=== PATIENT | male | born 1950 | race Caucasian/White ===

== ENCOUNTER 2020-01-23 15:33 | Outpatient (CLI) | payer BC, SELFPAY ==
--- NOTE | ~2020-01-23 | XR_ITS ---
EXAMINATION: XR chest 2V 01/23/2020 15:48 INDICATION: Shortness of breath PROCEDURE: 2 view chest COMPARISON: Comparison to multiple prior studies sequentially, with oldest reviewed study dated 10/2014. FINDINGS: The lungs are clear. Status post partial left lung resection. The cardiomediastinal silhoue tte is within normal limits. There are no pleural effusions. There is no pneumothorax suspected. IMPRESSION: 1: NO ACUTE CARDIOPULMONARY DISEASE. Reviewed, dictated and finalized at location A.
== END 2020-01-23 15:34 | disposition home or self-care (01) ==
LOC: ANHIMG 15:38
PROVIDERS: PCP Family Medicine; Visit Provider Nurse Practitioner Family
DX: R06.02 Shortness of breath (principal)
CPT/HCPCS: 71046

== ENCOUNTER 2020-01-25 06:31 | Outpatient (CLI) | payer BC, SELFPAY ==
[2020-01-25 07:17] LABS: Hemoglobin 14.6 g/dL (14.0-18.0); Mean Corpuscular HGB Conc 33.2 g/dl (32-36); Mean Corpuscular Volume 90.3 fl (80-100); Platelet Count Result 195 k/mm3 (150-375); Red Blood Count 4.87 M/mm3 (4.6-6.20); Red Cell Distribution Width 12.7 % (11.5-14.5); White Blood Count 6.9 K/mm3 (4.5-10.0)
[2020-01-25 07:31] LABS: Blood Urea Nitrogen 16 mg/dL (9-20); Calcium 8.9 mg/dL (8.4-10.2); Carbon Dioxide 31 mmol/L (22-30); Chloride 97 mmol/L (98-107); Cholesterol 132 mg/dL (0-200); Estimated Glomerular Filt Rate > 60; Glucose 97 mg/dL (75-110); HDL Direct 48 mg/dL; Sodium 132 mmol/L (137-145); Triglycerides 48 mg/dL (<150)
[2020-01-25 07:40] LABS: LDL Cholesterol Direct 66 mg/dL
[2020-01-25 07:58] LABS: Vitamin D 25 Hydroxy 18.9 ng/mL
== END 2020-01-25 06:32 | disposition home or self-care (01) ==
PROVIDERS: PCP Family Medicine; Visit Provider Nurse Practitioner Family
DX: R06.02 Shortness of breath (principal); F41.9 Anxiety disorder, unspecified; E78.5 Hyperlipidemia, unspecified; R53.83 Other fatigue; E55.9 Vitamin D deficiency, unspecified
CPT/HCPCS: 36415; 80048; 80061; 82306; 84443; 85027

== ENCOUNTER 2020-04-10 06:57 | Outpatient (CLI) | payer BC, SELFPAY ==
[2020-04-10 07:35] LABS: Sodium 139 mmol/L (137-145)
[2020-04-10 09:43] LABS: Vitamin D 25 Hydroxy 51.7 ng/mL
== END 2020-04-10 06:58 | disposition home or self-care (01) ==
PROVIDERS: PCP Family Medicine; Visit Provider Nurse Practitioner Family
DX: E55.9 Vitamin D deficiency, unspecified (principal); E87.1 Hypo-osmolality and hyponatremia
CPT/HCPCS: 36415; 82306; 84295

== ENCOUNTER 2020-06-20 14:21 | Outpatient (CLI) | payer BC, SELFPAY ==
[2020-06-20 16:19] LABS: Vitamin D 25 Hydroxy 50.4 ng/mL
== END 2020-06-20 14:22 | disposition home or self-care (01) ==
PROVIDERS: PCP Family Medicine; Visit Provider Nurse Practitioner Family
DX: E55.9 Vitamin D deficiency, unspecified (principal)
CPT/HCPCS: 36415; 82306

== ENCOUNTER 2020-07-13 08:40 | Outpatient (NON) | payer BC, SELFPAY ==
[2020-07-13 17:45] LABS: SARS-CoV-2 RNA PCR Positive
== END 2020-07-13 08:41 ==
PROVIDERS: PCP Family Medicine; Visit Provider Nurse Practitioner Family
DX: U07.1 COVID-19 (principal)
CPT/HCPCS: 87635; C9803; U0003

== ENCOUNTER 2020-07-30 10:03 | Outpatient (NON) | payer BC, SELFPAY ==
[2020-07-31 01:06] LABS: SARS-CoV-2 RNA PCR Positive
== END 2020-07-30 10:04 ==
LOC: ANHCOVIDDT 10:04
PROVIDERS: PCP Family Medicine; Visit Provider Nurse Practitioner Family
DX: U07.1 COVID-19 (principal)
CPT/HCPCS: 87635; C9803; U0003

== ENCOUNTER 2021-01-04 11:31 | Outpatient (CLI) | payer BC, SELFPAY ==
--- NOTE | ~2021-01-04 | XR_ITS ---
EXAMINATION: XR chest 2V DATE: 01/04/2021 11:54 INDICATION: Cough. TECHNIQUE: Frontal and lateral views of the chest were obtained. COMPARISON: Chest 2 views 01/23/2020, chest CT 08/30/2018 FINDINGS: There is volume loss of left hemithorax from left lower lobectomy. There is mild scarring a t the lung apices. No pleural effusion or pneumothorax. The heart size is normal. IMPRESSION: 1. Stable mild scarring at the lung apices. 2. Left lower lobectomy. Reviewed, dictated and finalized at location A.
== END 2021-01-04 11:32 | disposition home or self-care (01) ==
PROVIDERS: PCP Family Medicine; Visit Provider Nurse Practitioner Family
DX: R05 Cough (principal); R91.8 Other nonspecific abnormal finding of lung field
CPT/HCPCS: 71046

== ENCOUNTER 2021-01-31 08:02 | Outpatient (CLI) | payer MEDICARE, OTHER, SELFPAY ==
[2021-01-31 08:55] LABS: Basophils Percent Auto 0.5 % (0.2-1.2); Eosinophils Absolute Auto 0.4 K/mm3 (0-0.3); Eosinophils Percent Auto 5.4 % (0-4.4); Hematocrit 43.6 % (42.0-52.0); Hemoglobin 14.4 g/dL (14.0-18.0); Immature Granulocyte Absolute 0.04 K/mm3 (0.00-0.031); Immature Granulocyte Percent A 0.5 % (0-0.5); Lymphocytes Absolute Auto 3.19 K/mm3 (0.9-3.2); Lymphocytes Percent Auto 42.8 % (18.3-44.2); Mean Corpuscular Hemoglobin 29.9 pg (26-34); Mean Corpuscular Volume 90.6 fl (80-100); Mean Platelet Volume 10.2 fl (7.4-10.4); Monocytes Absolute Auto 0.9 K/mm3 (0.1-0.6); Monocytes Percent Auto 12.3 % (2.6-8.5); Neutrophils Absolute Auto 2.9 K/mm3 (1.3-6.7); Neutrophils Percent Auto 38.5 % (45.5-73.1); Platelet Count Result 218 k/mm3 (150-375); Red Blood Count 4.81 M/mm3 (4.6-6.20); Red Cell Distribution Width 13.2 % (11.5-14.5); White Blood Count 7.5 K/mm3 (4.5-10.0)
[2021-01-31 09:08] LABS: Alanine Aminotransferase 40 U/L (4-50); Alkaline Phosphatase 77 U/L (38-126); Anion Gap 4 mmol/L (8-16); Aspartate Amino Transferase 35 U/L (17-59); Bilirubin,Total 0.3 mg/dL (0.2-1.3); Blood Urea Nitrogen 22 mg/dL (9-20); Calcium 9.4 mg/dL (8.4-10.2); Carbon Dioxide 34 mmol/L (22-30); Chloride 102 mmol/L (98-107); Cholesterol 144 mg/dL (0-200); Estimated Glomerular Filt Rate > 60; Glucose 99 mg/dL (75-110); HDL Direct 45 mg/dL; Potassium 4.9 mmol/L (3.4-5.0); Sodium 140 mmol/L (137-145); Triglycerides 64 mg/dL (<150)
[2021-01-31 09:19] LABS: LDL Cholesterol Direct 74 mg/dL
[2021-01-31 09:50] LABS: Vitamin D 25 Hydroxy 55.6 ng/mL
== END 2021-01-31 08:03 | disposition home or self-care (01) ==
PROVIDERS: PCP Family Medicine; Visit Provider Nurse Practitioner Family
DX: E78.2 Mixed hyperlipidemia (principal); E55.9 Vitamin D deficiency, unspecified; I10 Essential (primary) hypertension
CPT/HCPCS: 36415; 80053; 80061; 82306; 84443; 85025

== ENCOUNTER 2021-07-11 01:21 | Day surgery (SDC) | payer MEDICARE, OTHER, SELFPAY ==
[2021-06-25 14:17] VITALS: BMI 23.5
[2021-07-11 08:34] VITALS: BP 144/79; PULSE 90; RESP 18; TEMP 36.2; O2SAT 99; BMI 23.0
[2021-07-11] MEDS: LACTATED RINGERS 1,000 ML 150 ML IV CONT (08:37)
--- NOTE | 2021-07-11 08:45 | WPDANESEPPF ---
Anes - Initial Pre Proc Eval Procedure: Operation Date: 07/11/21 09:30 Proposed Procedures p Screening Colonoscopy - Brandyn Winslow MD Date/Time: 07/11/21 08:45 Surgeon: Brandyn Winslow MD Pre Op Diagnosis: neoplasm screening Patient Data Age: 71 Gender: M Height: 1.68 m Weight: 64.8 kg Last Vital Signs Temp 36.2 C L 07/11/21 08:34 Pulse 90 07/11/21 08:34 Resp 18 07/11/21 08:34 BP 144/79 H 07/11/21 08:34 Pulse Ox 99 07/11/21 08:34 Allergies Allergy/AdvReac Type Severity Reaction Status Date / Time benzonatate Allergy Severe Unknown Verified 07/11/21 08:33 diphenhydramine Allergy Intermediate Unknown Verified 07/11/21 08:33 clarithromycin Allergy Mild Unknown Verified 07/11/21 08:33 levofloxacin Allergy Unknown Unknown Verified 07/11/21 08:33 Penicillins Allergy Unknown Unknown Verified 07/11/21 08:33 pseudoephedrine Allergy Unknown Unknown Verified 07/11/21 08:33 Home Medications Medication Instructions Recorded Confirmed Type tamsulosin 0.4 mg capsule 0.4 mg PO DAILY 10/25/20 07/11/21 History alprazolam 0.5 mg tablet 0.5 mg PO TID PRN #60 tablet 05/22/21 07/11/21 Rx atorvastatin 80 mg tablet 80 mg PO DAILY #90 tablet 05/22/21 07/11/21 Rx lisinopril 20 mg tablet 20 mg PO DAILY #90 tablet 05/22/21 07/11/21 Rx amoxicillin-pot clavulanate 2 tablet PO BID 06/25/21 07/11/21 History aspirin [Adult Low Dose Aspirin] 81 mg PO DAILY 06/25/21 07/11/21 History finasteride 5 mg PO DAILY 06/25/21 07/11/21 History metoprolol succinate 50 mg PO DAILY 06/25/21 07/11/21 History Patient hx anesthesia problems: none Family hx anesthesia problems: none Results Review: All pre-operative results and documents have been reviewed as part of the pre-operative evaluation. [facility] Past Medical History Medical History (Updated 07/11/21 @ 08:49 by Tony Sher MD) Atherosclerosis of arteries BMI 22.0-22.9, adult BMI 23.0-23.9, adult Body aches BPH associated with nocturia Carotid stenosis, right COVID-19 Sore throat Surgical History Surgical History History of lung surgery Family History Family History Sibling Hypertension Mother Acute myocardial infarction Father , car crash Sibling Hypertension Social History Social History Smoking packs per day: 2 Smoking cigarettes per day: 40.0 Years smoked: 35 Smoking pack-years: 70.00 Smoking status: Former smoker Tobacco type: cigarettes Second hand tobacco smoke exposure: No Alcohol intake: former Drinks per week: 7 Substance use: never Substance use type: does not use Living arrangements: with family Additional living arrangements comments: 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 Gender identity (if verbalized by the patient): Male Sexual Orientation (if Verbalized by the Patient): Straight or Heterosexual Spiritual care concerns: No Agree to blood products: Yes Anes - Eval Final PreProcedure Day of Procedure 07/11/21 08:45 Patient weight: normal Heart: regular rate and rhythm Lungs: clear to auscultation Airway: Mallampati scale class II Neurological: alert and oriented Last oral intake: >/= 8 hours ASA classification: III Emergent: no Anesthetic plan: proceed Anesthesia type and monitoring: general GIVS and standard monitoring Results Review: All pre-operative results and documents have been reviewed as part of the pre-operative evaluation. Informed Consent: The patient's anesthetic plan and its attendant risks and benefits were discussed with the patient/family/POA. Questions were solicited and answers provided to the satisfaction of the patient/family/POA.
--- NOTE | 2021-07-11 08:57 | PM.HPGS ---
History of Present Illness History of Present Illness Consent: Risks, benefits, and alternatives have been discussed and questions answered. Patient agrees to proceed with procedure. Chief complaint: neoplasm screening Narrative: Amarjit Hayes is a 71 year old male referred for colon cancer screening. Review of Systems Review of Systems: All systems reviewed & are unremarkable except as noted in HPI and below PMFSH Past Medical History Medical History Atherosclerosis of arteries BMI 22.0-22.9, adult BMI 23.0-23.9, adult Body aches BPH associated with nocturia Carotid stenosis, right COVID-19 Sore throat Surgical History Surgical History History of lung surgery Family History Family History Sibling Hypertension Mother Acute myocardial infarction Father , car crash Sibling Hypertension Social History Social History Smoking packs per day: 2 Smoking cigarettes per day: 40.0 Years smoked: 35 Smoking pack-years: 70.00 Smoking status: Former smoker Tobacco type: cigarettes Second hand tobacco smoke exposure: No Alcohol intake: former Drinks per week: 7 Substance use: never Substance use type: does not use Living arrangements: with family Additional living arrangements comments: 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 Gender identity (if verbalized by the patient): Male Sexual Orientation (if Verbalized by the Patient): Straight or Heterosexual Spiritual care concerns: No Agree to blood products: Yes Meds Home Medications and Allergies Home Medications Medication Instructions Recorded Confirmed Type tamsulosin 0.4 mg capsule 0.4 mg PO DAILY 10/25/20 07/11/21 History alprazolam 0.5 mg tablet 0.5 mg PO TID PRN #60 tablet 05/22/21 07/11/21 Rx atorvastatin 80 mg tablet 80 mg PO DAILY #90 tablet 05/22/21 07/11/21 Rx lisinopril 20 mg tablet 20 mg PO DAILY #90 tablet 05/22/21 07/11/21 Rx amoxicillin-pot clavulanate 2 tablet PO BID 06/25/21 07/11/21 History aspirin [Adult Low Dose Aspirin] 81 mg PO DAILY 06/25/21 07/11/21 History finasteride 5 mg PO DAILY 06/25/21 07/11/21 History metoprolol succinate 50 mg PO DAILY 06/25/21 07/11/21 History Allergies Allergy/AdvReac Type Severity Reaction Status Date / Time benzonatate Allergy Severe Unknown Verified 07/11/21 08:33 diphenhydramine Allergy Intermediate Unknown Verified 07/11/21 08:33 clarithromycin Allergy Mild Unknown Verified 07/11/21 08:33 levofloxacin Allergy Unknown Unknown Verified 07/11/21 08:33 Penicillins Allergy Unknown Unknown Verified 07/11/21 08:33 pseudoephedrine Allergy Unknown Unknown Verified 07/11/21 08:33 Vital Signs Vital Signs - 24 hr 07/11/21 08:34 Temperature 36.2 C L Pulse Rate 90 Respiratory Rate 18 Blood Pressure 144/79 H Pulse Oximetry 99 Exam Resp: Auscultation: clear to auscultation bilaterally Cardio: Rate: regular rate Rhythm: regular rhythm GI: GI Palp: Yes Soft to palpation and No Tenderness to palpation present (GI) Assessment and Plan Assessment and plan (1) Screening for colon cancer: Code(s): Z12.11 - Encounter for screening for malignant neoplasm of colon Status: Acute Assessment and Plan: Colonoscopy with possible biopsy or polypectomy or cautery or injection of substances.
--- NOTE | 2021-07-11 09:30 | SUR.OPER ---
Dr. Winslow aware that one transverse polyp was not retrieved. Anamaria Delgado and Mallory Stock
[2021-07-11 09:33] VITALS: BP 92/58; PULSE 69; RESP 22; O2SAT 100
[2021-07-11 09:43] VITALS: BP 105/59; PULSE 66; RESP 18; O2SAT 100
== END 2021-07-11 10:05 | disposition home or self-care (01) ==
PROVIDERS: PCP Family Medicine; Visit Provider Internal Medicine Gastroenterology
PROC: 0DJD8ZZ Inspection of Lower Intestinal Tract, Via Natural or Artificial Opening Endoscopic (ICD-10-PCS; CPT 45378; principal; 2021-07-11 09:30)
DX: Z12.11 Encounter for screening for malignant neoplasm of colon (principal); K57.30 Diverticulosis of large intestine without perforation or abscess without bleeding; D12.8 Benign neoplasm of rectum; D12.3 Benign neoplasm of transverse colon; D12.4 Benign neoplasm of descending colon; I25.10 Atherosclerotic heart disease of native coronary artery without angina pectoris; N40.1 Benign prostatic hyperplasia with lower urinary tract symptoms; R35.1 Nocturia; Z86.16 Personal history of COVID-19; Z79.82 Long term (current) use of aspirin; Z87.891 Personal history of nicotine dependence
CPT/HCPCS: 45385; 45380; 88305; J2704; J7120

== ENCOUNTER 2022-04-24 08:03 | Outpatient (CLI) | payer MEDICARE, OTHER, SELFPAY ==
[2022-04-24 08:25] LABS: Hematocrit 46.3 % (42.0-52.0); Hemoglobin 14.9 g/dL (14.0-18.0); Mean Corpuscular HGB Conc 32.2 g/dl (32-36); Mean Corpuscular Hemoglobin 29.7 pg (26-34); Mean Corpuscular Volume 92.4 fl (80-100); Mean Platelet Volume 10.3 fl (7.4-10.4); Platelet Count Result 224 k/mm3 (150-375); Red Blood Count 5.01 M/mm3 (4.6-6.20); Red Cell Distribution Width 13.5 % (11.5-14.5); White Blood Count 7.6 K/mm3 (4.5-10.0)
[2022-04-24 08:37] LABS: Alanine Aminotransferase 45 U/L (6-50); Albumin Level 4.3 g/dL (3.5-5.1); Alkaline Phosphatase 88 U/L (38-126); Anion Gap 7 mmol/L (8-16); Aspartate Amino Transferase 36 U/L (17-59); Bilirubin,Total 0.7 mg/dL (0.2-1.3); Blood Urea Nitrogen 17 mg/dL (9-20); Carbon Dioxide 32 mmol/L (22-30); Chloride 102 mmol/L (98-107); Cholesterol 146 mg/dL (0-200); Estimated Glomerular Filt Rate > 60; Glucose 105 mg/dL (65-110); HDL Direct 43 mg/dL; Potassium 4.8 mmol/L (3.4-5.0); Sodium 141 mmol/L (137-145); Triglycerides 57 mg/dL (<150)
[2022-04-24 08:47] LABS: LDL Cholesterol Direct 67 mg/dL
[2022-04-24 09:00] LABS: Vitamin D 25 Hydroxy 53.5 ng/mL
== END 2022-04-24 08:04 | disposition home or self-care (01) ==
PROVIDERS: PCP Family Medicine; Visit Provider Nurse Practitioner Family
DX: E78.2 Mixed hyperlipidemia (principal); I10 Essential (primary) hypertension; F41.1 Generalized anxiety disorder; E55.9 Vitamin D deficiency, unspecified
CPT/HCPCS: 36415; 80053; 80061; 82306; 84443; 85027

== ENCOUNTER 2023-01-15 13:41 | Outpatient (CLI) | payer MEDICARE, OTHER, SELFPAY ==
--- NOTE | ~2023-01-15 | US_ITS ---
EXAMINATION: US carotid duplex BI DATE: 01/15/2023 14:49 INDICATION: Carotid atherosclerosis and stenosis post prior right carotid endarterectomy TECHNIQUE: Grayscale, color Doppler, and pulsed Doppler images of the cervical carotid arteries were obtained. The degree of vessel stenosis is placed in one of the following categories: normal, <50%, 5 0-69%, >=70% but less than near-occlusion, near-occlusion, or total occlusion. Note that percent sten osis relative to normal distal artery lumen diameter is indirectly measured from velocity measurement s as described by Hung, et al. Radiology 2003; 229:340-346. COMPARISON: None. FINDINGS: RIGHT: The right common carotid artery (CCA) peak systolic velocity (PSV) is 124 cm/s. The right internal ca rotid artery (ICA) PSV is 97 cm/s. The right ICA end-diastolic velocity (EDV) is 30 cm/s. The right I CA/CCA PSV ratio is 0.8. Grayscale and color Doppler images yield an estimate of <50% diameter reduct ion from plaque in the ICA. The external carotid artery (ECA) PSV is 111 cm/s. There is antegrade johnathan w in the right vertebral artery. LEFT: The left CCA PSV is 139 cm/s. The left ICA PSV is 144 cm/s. The left ICA EDV is 35 cm/s. The left ICA /CCA PSV ratio is 1.0. Grayscale and color Doppler images yield an estimate of 50-69% diameter reduct ion from plaque in the ICA. The ECA PSV is 156 cm/s. There is antegrade flow in the left vertebral ar jeffery. IMPRESSION: 1. <50% stenosis in the right internal carotid artery. 2. 50-69% stenosis in the left internal carotid artery. Reviewed, dictated and finalized at location A.
== END 2023-01-15 13:42 | disposition home or self-care (01) ==
PROVIDERS: PCP Family Medicine; Visit Provider Internal Medicine Cardiovascular Disease
DX: I65.23 Occlusion and stenosis of bilateral carotid arteries (principal); I73.9 Peripheral vascular disease, unspecified; R09.89 Other specified symptoms and signs involving the circulatory and respiratory systems; Z86.79 Personal history of other diseases of the circulatory system; Z98.890 Other specified postprocedural states
CPT/HCPCS: 93880

== ENCOUNTER 2023-09-28 17:16 | Outpatient (CLI) | payer MEDICARE, OTHER, SELFPAY ==
--- NOTE | ~2023-09-28 | XR_ITS ---
EXAMINATION: XR chest 2V DATE: 09/28/2023 17:34 INDICATION: Bronchitis TECHNIQUE: PA and lateral views of the chest were obtained. COMPARISON: Chest radiograph dated 01/04/[address] dated 01/04/2021 FINDINGS: Volume loss in left hemithorax with a separate change of prior left lower lobectomy. Unchanged mild b iapical pleural-parenchymal scarring. No new airspace opacities, pulmonary edema, pleural effusion or pneumothorax. Heart size is normal. IMPRESSION: 1. Stable appearance of mild biapical pleural-parenchymal scarring and change of prior left lower lob ectomy. No acute cardiopulmonary disease. Reviewed, dictated and finalized at location A. BILITY COORDINATOR IMPRESSION: 1. Stable appearance of mild biapical pleural-parenchymal scarring and change o f prior left lower lobectomy. No acute cardiopulmonary disease.
== END 2023-09-28 17:17 | disposition home or self-care (01) ==
PROVIDERS: PCP Family Medicine; Visit Provider Family Medicine
DX: J40 Bronchitis, not specified as acute or chronic (principal); Z85.118 Personal history of other malignant neoplasm of bronchus and lung
CPT/HCPCS: 71046

== ENCOUNTER 2025-02-06 08:36 | Outpatient (CLI) | payer MEDICARE, SELFPAY ==
--- OUTSIDE RECORDS SUMMARY | 2025-02-06 08:45 | XMS_ITS | Clinical Summary ---
Author Organization [facility] Address [address] [place] [address] Care Team Providers Care Checkering Machine Adjuster Name Role Phone Sumanth Quigley MD Primary Care Provider [phone] Allergies Active Allergy Reactions Criticality Noted Date Comments Levofloxacin Unknown 03/28/2019 Penicillins Swelling 03/28/2019 Medications ALPRAZolam 0.5 MG tablet Take 1 tablet (0.5 mg total) by mouth 3 (three) times daily as needed. 1 03/02/2019 Active atorvastatin 80 MG tablet Take 1 tablet (80 mg total) by mouth daily. 2 03/21/2019 Active lisinopril 20 MG tablet Take 1 tablet (20 mg total) by mouth daily. 0 01/06/2019 Active tamsulosin 0.4 MG Cap TK 1 C PO HS 12 02/21/2019 Active aspirin 81 MG chewable tablet Chew 1 tablet (81 mg total) by mouth daily. Active ranitidine 75 MG Tab Take 1 tablet (75 mg total) by mouth as needed (heartburn). Active finasteride (PROSCAR) 5 MG tablet Take 1 tablet (5 mg total) by mouth daily. 08/25/2023 Active omeprazole (PRILOSEC) 40 MG capsule Take 1 capsule (40 mg total) by mouth daily. 09/20/2024 Active amLODIPine (NORVASC) 10 MG tablet Take 1 tablet (10 mg total) by mouth daily. 90 tablet 3 10/05/2024 Active hydrALAZINE (APRESOLINE) 25 MG tablet Take 1 tablet (25 mg total) by mouth every 6 (six) hours as needed. If systolic is greater than 180 120 tablet 3 10/05/2024 Active metoprolol succinate ER (TOPROL-XL) 100 MG 24 hr tablet Take 0.5 tablets (50 mg total) by mouth daily. 10/31/2024 Active Active Problems Problem Noted Date Diagnosed Date Hypertension 09/07/2023 Overview (09/07/2023): Last Assessment & Plan: Continue amlodipine, lisinopril, and metoprolol. Mixed hyperlipidemia 09/07/2023 Overview (09/07/2023): Last Assessment & Plan: Continue Lipitor Bilateral carotid artery stenosis 04/16/2023 Overview (09/07/2023): Last Assessment & Plan: Impression: Patient is status post right carotid endarterectomy at an outside facility in 2013. He remains asymptomatic. Carotid duplex reveals a patent right internal carotid artery and moderate stenosis to left internal carotid artery with less than 69% in diameter. Plan: Continue ongoing risk factor modifications. -patient to follow-up in 1 year for re-evaluation with carotid duplex. 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 Immunizations Immunization Administration Dates Next Due Influenza (Generic) 09/02/2017, 6,07/16/2015,12/13/19 14 Pneumococcal (Pneumovax 23) 12/12/2013 Tdap (Generic) 02/02/2018 Zoster (Zostavax) 89743 Unt/0.65Ml 09/02/2017 Family History Medical History Relation Comments CABG Mother Heart Disease Mother Heart Disease Sister Relation Status Comments Mother Sister Social History Tobacco Use Types Packs/Day Years Used Date Smoking Tobacco: Former Cigarettes Q uit: 2000 Passive Smoke Exposure: Past Smokeless Tobacco: Never Tobacco Cessation:Counseling Given: No Alcohol Use Standard Drinks/Week Comments Yes 10 (1 standard drink = 0.6 oz pu re alcohol) PHQ-2 Answer Date Recorded Patient Health Questionnaire-2 Score 0 09/07/2023 Sex and Gender Information Value Date Recorded Sex Assigned at Male 11/02/2024 9:22 AM MANAGER REGULATORY Legal Sex Male 8:43 PM CDT Gender Identity Not on file Sexual Orientation Not on file Last Filed Vital Signs Vital Sign Reading Time Taken Comments Blood Pressure 120/60 10/31/2024 2:52 PM MANAGER REGULATORY Pulse 55 10/31/2024 2:52 PM MANAGER REGULATORY Temperature 36.2 C (97.1 F) 09/30/2024 10:10 AM MANAGER REGULATORY Respiratory Rate 16 09/30/2024 12:00 PM MANAGER REGULATORY Oxygen Saturation 96% 09/30/2024 12:00 PM MANAGER REGULATORY Inhaled Oxygen Concentration - - Weight 71.2 kg (157 lb) 10/31/2024 2:52 PM MANAGER REGULATORY Height 167.6 cm (5' 6 ) 10/31/2024 2:52 PM MANAGER REGULATORY Body Mass Index 25.34 10/31/2024 2:52 PM MANAGER REGULATORY Plan of Treatment Upcoming Encounters Date Type Department Care Team (Late st Contact Info) Description 11/06/2025 11:45 AM MANAGER REGULATORY Office Visit [facility] [address] [place] [id number] Esteban Pratt MD [address] [address] Health Maintenance Due Date Last Done Comments Colorectal Cancer Screening Colonoscopy (10 Years) 1950 Hepatitis C 1969 RSV Immunization or 60+ Years (1 - Risk 60-74 years 1-dose series) 2011 Pneumococcal Vaccine: 50+ Years (2 of 2 - PCV) 12/12/2014 12/12/2013 Annual Medicare Wellness Visit 2016 Zoster Vaccines (2 of 3) 10/28/2017 09/02/2017 COVID-19 Vaccine (3 - 2023-2 5 season) 2024 12/12/2020, 11/20/2020 PHQ-2 (Physician Garfield) 09/21/2024 09/07/2023 DTaP, Tdap and Td Vaccines ( 2 - Td or Tdap) 02/03/2028 02/02/2018 AAA SCREENING Completed 05/21/2021, 03/28/2019 Meningococcal B Vaccine Aged Out No l onger eligible based on patient's age to complete this topic Meningococcal Vaccine Aged Out No kell gabriel eligible based on patient's age to complete this topic RSV Immunizations Under 20 Months Aged Out No longer eligible b ased on patient's age to complete this topic Procedures Procedure Name Priority Date/Time Associated Diagnosis Comments CT ABD+PEL W CON STAT 05/21/2021 10:3 3 PM CDT from Last 3 Months or Most Recently Relevant to Health Maintenance Results * CT ABD+PEL W IV CON ONLY (05/21/2021 10:33 PM CDT) Anatomical Region Laterality Modality Abdomen Computed Tomogra phy 05/21/2021 11:0 2 PM CDT Impressions 05/21/2021 11:09 PM CDT IMPRESSION: 1. Colonic diverticula without evidence for diverticulitis. 2. Advanced vascular calcifications abdomen and pelvis without evidence for abdominal aortic aneurysm. 3. Heterogeneous enhancement of the prostate gland is nonspecific. Clinical correlation for any related symptoms of prostatitis. 4. 8 mm low-attenuation next attenuation focus in the medial right kidney. Small cyst left mid kidney. These are too small to characterize but could represent cysts. Focus in the right kidney is complex and renal ultrasound on a nonemergent basis may be helpful. PQRS: [id number] Referred By: CHYNA MCGRAW Interpreted By: Lm Hollingsworth MD, 05/21/2021 11:02 PM Narrative 05/21/2021 11:09 PM CDT EXAMINATION: CT Abdomen and Pelvis with contrast EXAM DATE/TIME: 05/21/2021 10:25 PM REASON FOR EXAM: Abdominal pain, acute, nonlocalized COMPARISON: None DOSE OPTIMIZATION: This facility uses dose optimization techniques as appropriate to perform exams, including at least one of the following techniques: 1. Automated exposure control. 2. Adjustment of the mA and/or kV according to patient size (this includes techniques or standardized protocols for targeted exams where dose is matched to the indication/reason for exam, i.e. extremities or head). 3. Use of iterative reconstructive technique. FINDINGS: CT of the abdomen and pelvis are performed with IV contrast. Lung bases are clear of indeterminate pulmonary nodule. No focal lung infiltrates are seen. The liver, spleen, pancreas, and bilateral adrenal glands are negative. The gallbladder and biliary tree appear within normal limits. 8 mm low-attenuation next attenuation focus in the medial right kidney. Small cyst left mid kidney. No renal masses or adenopathy. The appendix is visualized and appears within normal limits. No retroperitoneal or mesenteric adenopathy. Advanced vascular calcifications abdomen and pelvis without evidence for abdominal aortic aneurysm. CT of the pelvis is negative for mass or adenopathy. No pelvic free fluid. Colonic diverticula without evidence for diverticulitis. Heterogeneous enhancement of the prostate gland is nonspecific. Clinical correlation for any related symptoms of prostatitis. Procedure Note Lm Hollingsworth MD - 05/21/2021 EXAMINATION: CT Abdomen and Pelvis with contrast EXAM DATE/TIME: 05/21/2021 10:25 PM REASON FOR EXAM: Abdominal pain, acute, nonlocalized COMPARISON: None DOSE OPTIMIZATION: This facility uses dose optimization techniques asappropriate to perform exams, including at least one of the followingtechniques: 1. Automated exposure control. 2. Adjustment of the mA and/or kV according to patient size (this includestechniques or standardized protocols for targeted exams where dose ismatched to the indication/reason for exam, i.e. extremities or head). 3. Use of iterative reconstructive technique. FINDINGS: CT of the abdomen and pelvis are performed with IV contrast. Lung basesare clear of indeterminate pulmonary nodule. No focal lung infiltrates areseen. The liver, spleen, pancreas, and bilateral adrenal glands arenegative. The gallbladder and biliary tree appear within normal limits. 8mm low-attenuation next attenuation focus in the medial right kidney.Small cyst left mid kidney. No renal masses or adenopathy. The appendix isvisualized and appears within normal limits. No retroperitoneal ormesenteric adenopathy. Advanced vascular calcifications abdomen and pelviswithout evidence for abdominal aortic aneurysm. CT of the pelvis is negative for mass or adenopathy. No pelvic free fluid.Colonic diverticula without evidence for diverticulitis. Heterogeneousenhancement of the prostate gland is nonspecific. Clinical correlation forany related symptoms of prostatitis. IMPRESSION: 1. Colonic diverticula without evidence for diverticulitis. 2. Advanced vascular calcifications abdomen and pelvis without evidencefor abdominal aortic aneurysm. 3. Heterogeneous enhancement of the prostate gland is nonspecific.Clinical correlation for any related symptoms of prostatitis. 4. 8 mm low-attenuation next attenuation focus in the medial right kidney.Small cyst left mid kidney. These are too small to characterize but couldrepresent cysts. Focus in the right kidney is complex and renal ultrasoundon a nonemergent basis may be helpful. PQRS: [id number] Referred By: CHYNA MCGRAW Interpreted By: Lm Hollingsworth MD, 05/21/2021 11:02 PM Chyna Mcgraw PA CT Final Resul t from Last 3 Months or Most Recently Relevant to Health Maintenance Insurance MEDICARE [facility] Advance Directives * Full Code (Latest Code Status on File) Date Activated Date Inactivated Comments 03/28/2019 8:43 PM 03/29/2019 6:02 PM Care Teams Checkering Machine Adjuster Relationship Specialty Start Date End Date Sumanth Quigley MD [address] [place] [address] PCP - General FAMILY PRACTICE 03/28/19
--- OUTSIDE RECORDS SUMMARY | 2025-02-06 08:45 | XMS_ITS | Referral Summary ---
Author Organization [facility] Address [address] [place] [address] Phone Care Team Providers Care Family Practice Md Name Role Phone Sumanth Quigley MD Primary Care Provider + [phone] Guido Ireland MD Unavailable [phone] Allergies Active Allergy Reactions Criticality Noted Date Comments Levofloxacin Unknown 03/28/2019 Penicillins Swelling Medium Medications ALPRAZolam (XANAX) 0.5 mg tablet TK 1 T PO TID PRN 1 8 Active atorvastatin (LIPITOR) 80 mg tablet TK 1 T PO QD 0 8 Active lisinopril (PRINIVIL,ZESTR IL) 20 mg tablet TK 1 T PO QD 1 8 Active metoprolol XL (TOPROL-XL) 50 mg 24 hr tablet TK 1 T PO QD 2 8 Active tamsulosin (FLOMAX) 0.4 mg extended release capsule 12 8 Active ASPIRIN ORAL 09/02/2017Aspir in, po solid 81 mg Tablet, delayed release (enteric coated)POdailyC urrent Medication 7 Active finasteride (PROSCAR) 5 mg tablet 2 Active amLODIPine (NORVASC) 5 mg tablet Take 1 tablet (5 mg total) by mouth daily 9 Active raNITIdine (ZANTAC) 75 mg tablet Take 1 tablet (75 mg total) by mouth as needed Active omeprazole (PriLOSEC) 40 mg capsule Take 1 capsule (40 mg total) by mouth daily 3 Active Active Problems Problem Noted Date Diagnosed Date Bilateral carotid artery stenosis 04/16/2023 Assessment & Plan (05/27/2024 9:09 AM CDT): Continues to do well status post endarterectomy 2214. Continues to deny any symptoms of stroke or TIA symptoms. Continue aspirin statin therapy follow-up yearly surveillance with carotid duplex Assessment & Plan (05/20/2023 9:06 AM CDT): Impression: Patient is status post right carotid endarterectomy at an outside facility in 2013. He remains asymptomatic. Carotid duplex reveals a patent right internal carotid artery and moderate stenosis to left internal carotid artery with less than 69% in diameter. Plan: Continue ongoing risk factor modifications. -patient to follow-up in 1 year for re-evaluation with carotid duplex. Assessment & Plan (04/16/2023 3:34 PM CDT): Impression: Patient has a history of a right carotid endarterectomy in 2013 at an outside facility. Patient had routine surveillance at [facility] and wanted to establish care with vascular surgery closer to home. Patient remains asymptomatic. Plan: We will have patient follow-up in 3-4 weeks with a carotid duplex. 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 Assessment & Plan (04/16/2023 3:35 PM CDT): Impression: Chronic and stable. Plan: Continue amlodipine, lisinopril, metoprolol. Mixed hyperlipidemia Assessment & Plan (05/20/2023 9:07 AM CDT): Continue Lipitor Assessment & Plan (04/16/2023 3:35 PM CDT): Impression: Chronic and stable. Plan: Continue Lipitor Resolved Problems Problem Noted Date Diagnosed Date Resolved Date PVD (peripheral vascular disease) 01/12/2023 01/12/2023 Immunizations Immunization Administration Dates Next Due Influenza, Trivalent, IM (MDV) 12/12/2013 Influenza, Unspecified 09/02/2017,09/01/2016, Pneumococcal Polysaccharide PPV23 12/12/2013 Tdap 02/02/2018 ZOSTER LIVE 09/02/2017 Social History Tobacco Use Types Packs/Day Years Used Date Smoking Tobacco: Former Cigarettes 2 15 1 986 - 2000 Smokeless Tobacco: Never Tobacco Cessation:Counseling Given: Not Answered Alcohol Use Standard Drinks/Week Comments Yes 0 (1 standard drink = 0.6 oz pur e alcohol) occasionally Sex and Gender Information Value Date Recorded Sex Assigned at Not on file 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 Gender Identity Not on file Sexual Orientation Not on file Last Filed Vital Signs Vital Sign Reading Time Taken Comments Blood Pressure 198/90 05/25/2024 9:33 AM CDT Pulse 71 05/25/2024 9:33 AM CDT Temperature 36.8 C (98.2 F) 09/01/2018 1:49 PM PRINTING EQUIPMENT MECHANIC Respiratory Rate 12 09/01/2018 1:49 PM PRINTING EQUIPMENT MECHANIC Oxygen Saturation 93% 01/18/2024 9:13 AM CDT Inhaled Oxygen Concentration - - Weight 71.7 kg (158 lb) 05/25/2024 9:33 AM CDT Height 167.6 cm (5' 6 ) 05/25/2024 9:33 AM CDT Body Mass Index 25.5 05/25/2024 9:33 AM CDT Plan of Treatment Not on file Procedures Procedure Name Priority Date/Time Associated Diagnosis Comments PSA, TOTAL AND FREE Routine 12/09/2022 2 :33 PM CDT Elevated PSA from Last 3 Months or Most Recently Relevant to Health Maintenance Results * PSA, total and free (12/09/2022 2:33 PM CDT) Pathologist [facility] PSA-free 0.6 ng/mL DHARA DIXON PSA-Total 2.5 <=6.5 ng/mL DHARA DIXON PSA-Free/Total Ratio See Footnote DHARA DIXON Comment: Ratio not calculated because clinical usefulness is not defined except in range of total PSA 4.0-10.0 ng/mL. ADDITIONAL INFORMATION The testing method is an electrochemiluminescence assay manufactured by [employer] and performed on the Modular or Karishma system. Values obtained with different assay methods or kits may be different and cannot be used interchangeably. Test results cannot be interpreted as absolute evidence for the presence or absence of malignant disease. Test Performed by: [place] [address] Deer Farmer: Kody Allen M.D. Ph.D.; CLIA# [id number] Blood 12/09/2022 2:33 PM CDT 12/09/2022 4:21 PM CDT Davon Murray MD LAB BLOOD ORDERABLES Final Resu lt [facility] [address] [facility]. Department [place] [address] from Last 3 Months or Most Recently Relevant to Health Maintenance Insurance MEDICARE [facility] [place] MEDICARE [facility] [place] MEDICARE [place] Care Teams Family Practice Md Relationship Specialty Start Date End Date Sumanth Quigley MD PCP - General 10/29/15 Guido Ireland MD [address] [facility] [address] [place] [address] Surgeon Vascular Surgery 05/11/23
--- OUTSIDE RECORDS SUMMARY | 2025-02-06 08:45 | XMS_ITS | Encounter Summary ---
Author Organization [facility] Address [address] [place] [address] Phone Care Team Providers Care Aluminum Sheet Cutter Name Role Phone Sumanth Quigley MD Primary Care Provider + [phone] Guido Ireland MD Unavailable [phone] Encounter Details Date Type Department Care Team (Late st Contact Info) Description 08/23/2018 Telephone [facility] Oncology [address] [place] [phone] Tg Mcelroy CMA Social History Tobacco Use Types Packs/Day Years Used Date Smoking Tobacco: Former Sex and Gender Information Value Date Recorded Sex Assigned at Not on file Legal Sex Male 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
--- OUTSIDE RECORDS SUMMARY | 2025-02-06 08:45 | XMS_ITS | Clinical Summary ---
Author Organization [facility] Address [address] [place] [address] Phone Care Team Providers Care Import/Export Administrator Name Role Phone Sumanth Quigley MD Primary Care Provider + [phone] Guido Ireland MD Unavailable [phone] Allergies Active Allergy Reactions Criticality Noted Date [...] outside facility. Patient had routine surveillance at [facility] and wanted to establish care with vascular [...] PPV23 12/12/2013 Tdap 02/02/2018 ZOSTER LIVE 09/02/2017 Surgical History Surgery Date Site/Laterality Comments RI TEAEC W/PATCH GRF CAROTID VERTB SUBCLAV NECK INC Carotid Thromboendarterectomy - (Added by TW Conv) Medical History Medical History Date Comments Atherosclerosis Atherosclerosis - (Added by TW Conv) Personal history of other di seases of the circulatory system History of hypertension - (A dded by [employer] Conv) Lung cancer (HCC) Hypertension Enlarged prostate Family History Medical History Relation Name Comments Car Accident Father Heart disease Mother Family history of cardiac disorder - (Added by [employer] Conv) Breast cancer Mother's Sister 1 Family hi story of malignant neoplasm of female breast - (Added by [employer] Conv) Colon cancer Mother's Sister 2 Family his tory of malignant neoplasm of colon - (Added by [employer] Conv) Relation Name Status Comments Father (Age 79) Mother (Age 91) Mother's Sister 1 Mother's Sister 2 Social History Tobacco Use Types Packs/Day Years Used Date Smoking Tobacco: Former Cigarettes 2 15 1 986 - 2001 Smokeless Tobacco: Never Tobacco Cessation:Counseling Given: Not Answered Alcohol Use Standard Drinks/Week Comments Yes 0 (1 standard drink = 0.6 oz pur e alcohol) occasionally Sex and Gender Information Value Date Recorded Sex Assigned at Not on file 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 Gender Identity Not on file Sexual Orientation Not on file Obstetrics History Last Filed Vital Signs Vital Sign Reading Time Taken Comments Blood Pressure 198/90 05/25/2024 9:33 AM CDT Pulse 71 05/25/2024 9:33 AM CDT Temperature 36.8 C (98.2 F) 09/01/2018 1:49 PM SLEEP TECHNOLOGIST Respiratory Rate 12 09/01/2018 1:49 PM SLEEP TECHNOLOGIST Oxygen Saturation 93% 01/18/2024 9:13 AM CDT Inhaled Oxygen Concentration - - Weight 71.7 kg (158 lb) 05/25/2024 9:33 AM CDT Height 167.6 cm (5' 6 ) 05/25/2024 9:33 AM CDT Body Mass Index 25.5 05/25/2024 9:33 AM CDT Plan of Treatment Health Maintenance Due Date Last Done Comments Colon Cancer Screening-Colonoscopy 1950 Depression Screening 1950 Fall Risk Assessment 1950 Hepatitis C Screening 1950 Hepatitis B Screening 1969 Pneumococcal vaccine 65+ (2 of 2 - PCV) 12/12/2014 12/12/2013 Well Visit 65+ 2016 Zoster Vaccine (2 of 3) 10/28/2017 09/02/2017 Covid-19 Vaccine (3 - 2023-2 5 season) 2024 12/12/2020, 11/20/2020 Influenza Vaccine (Season Ended) 2025 09/02/2017, 09/01/2016, 07/16/2015, Additional history exists DTaP/Tdap/Td Vaccine (2 - Td or Tdap) 02/03/2028 02/02/2018 Abdominal Aortic Aneurysm (A AA) Screen Completed 05/21/2021 Prostate Cancer Screening-PSA Discontinued 12/09/2022 Procedures Procedure Name Priority Date/Time Associated Diagnosis Comments PSA, TOTAL AND FREE Routine 12/09/2022 2 :33 PM CDT Elevated PSA from Last 3 Months or Most Recently Relevant to Health Maintenance Results * PSA, total and free (12/09/2022 2:33 PM CDT) PSA-free 0.6 ng/mL DHARA DIXON PSA-Total 2.5 [...] absence of malignant disease. Test Performed by: [facility] [address] [place] [address] Test Engine Evaluator: Kody Allen M.D. Ph.D.; CLIA# [id number] Blood 12/09/2022 2:33 PM CDT 12/09/2022 4:21 PM CDT Davon Murray MD LAB BLOOD ORDERABLES Final Resu lt Performing Organization Address City/State/ZIP Co ak Phone Number [facility] [address] [facility]. [place] [address] from Last 3 Months or Most Recently Relevant to Health Maintenance [place] [address] [facility] MEDICARE [facility] MEDICARE [facility] [place] [address] Care Teams Import/Export Administrator Relationship Specialty Start Date End Date Sumanth Quigley MD PCP - General 10/29/15 Guido Ireland MD [address] [place] [address] Surgeon Vascular Surgery 05/11/23
[2025-02-06 09:07] LABS: Basophils Absolute Auto 0.1 K/mm3 (0.0-0.1); Basophils Percent Auto 0.9 % (0.2-1.2); Eosinophils Absolute Auto 0.4 K/mm3 (0-0.3); Eosinophils Percent Auto 4.7 % (0-4.4); Hematocrit 45.4 % (42.0-52.0); Hemoglobin 14.8 g/dL (14.0-18.0); Immature Granulocyte Absolute 0.02 K/mm3 (0.00-0.031); Immature Granulocyte Percent A 0.2 % (0-0.5); Lymphocytes Absolute Auto 2.15 K/mm3 (0.9-3.2); Lymphocytes Percent Auto 26.8 % (18.3-44.2); Mean Corpuscular HGB Conc 32.6 g/dl (32-36); Mean Corpuscular Hemoglobin 29.5 pg (26-34); Mean Corpuscular Volume 90.4 fl (80-100); Mean Platelet Volume 10.6 fl (7.4-10.4); Monocytes Absolute Auto 1.1 K/mm3 (0.1-0.6); Monocytes Percent Auto 13.4 % (2.6-8.5); Neutrophils Absolute Auto 4.3 K/mm3 (1.3-6.7); Platelet Count Result 204 k/mm3 (150-375); Red Blood Count 5.02 M/mm3 (4.6-6.20); Red Cell Distribution Width 13.8 % (11.5-14.5)
[2025-02-06 09:20] LABS: Alanine Aminotransferase 36 U/L (6-50); Albumin Level 4.2 g/dL (3.5-5.1); Alkaline Phosphatase 73 U/L (38-126); Anion Gap 6 mmol/L (4-12); Aspartate Amino Transferase 40 U/L (17-59); Bilirubin,Total 0.9 mg/dL (0.2-1.3); Blood Urea Nitrogen 22 mg/dL (9-20); Calcium 8.9 mg/dL (8.4-10.2); Carbon Dioxide 28 mmol/L (22-30); Chloride 104 mmol/L (98-107); Cholesterol 159 mg/dL (0-200); Estimated Glomerular Filt Rate > 60; Glucose 102 mg/dL (65-110); HDL Direct 56 mg/dL; Potassium 4.7 mmol/L (3.4-5.0); Sodium 138 mmol/L (137-145); Triglycerides 59 mg/dL (<150)
[2025-02-06 09:32] LABS: LDL Cholesterol Direct 70 mg/dL
[2025-02-06 09:51] LABS: Prostate Specific Antigen 2.6 ng/mL (< OR = 4.0)
== END 2025-02-06 08:37 | disposition home or self-care (01) ==
PROVIDERS: PCP Family Medicine; Visit Provider Nurse Practitioner Adult Health
DX: E78.2 Mixed hyperlipidemia (principal); I10 Essential (primary) hypertension; N40.1 Benign prostatic hyperplasia with lower urinary tract symptoms; R35.1 Nocturia; R97.20 Elevated prostate specific antigen [PSA]
CPT/HCPCS: 36415; 80053; 80061; 84153; 84443; 85025

== ENCOUNTER 2025-02-08 10:49 | Emergency (ER) | payer MEDICARE, OTHER, SELFPAY ==
--- NOTE | 2025-02-08 10:52 | ED_ITS ---
HPI - URI/Sore Throat General Chief Complaint: Upper Respiratory Infection Stated Complaint: Strep Symptoms Time Seen by Provider: 02/08/25 10:51 Source: patient Mode of arrival: ambulatory Limitations: no limitations History of Present Illness HPI Narrative: Amarjit is a 74-year-old male patient presenting to the clinic today with complaints sore throat, diarrhea x1 day, nasal congestion, and feeling feverish x3 days. He reports no chest pain or increased shortness of breath than normal. States that his throat was released sore last night this morning. Diarrhea has resolved. MD elicited complaint: sore throat and nasal congestion Related Data Home Medications ?Medication ?Instructions ?Recorded ?Confirmed ?Last Taken ?Type tamsulosin 0.4 mg capsule 0.4 mg PO DAILY 10/25/20 02/08/25 Unknown History aspirin 81 mg tablet 81 mg PO DAILY 06/25/21 02/08/25 Unknown History finasteride 5 mg tablet 5 mg PO DAILY 06/25/21 02/08/25 Unknown History amlodipine 10 mg tablet mg PO DAILY 02/02/25 02/02/25 Unknown History Allergies Allergy/AdvReac Type Severity Reaction Status Date / Time clarithromycin Allergy Unknown Unknown Verified 02/08/25 11:09 Penicillins Allergy Unknown Unknown Verified 02/08/25 11:09 levofloxacin AdvReac Intermediate Dizziness Verified 02/08/25 11:09 pseudoephedrine AdvReac Intermediate Dizziness Verified 02/08/25 11:09 Review of Systems Review of Systems: Pertinent positives per HPI. Patient denies any rash, headache, visual changes, dizziness, shortness of breath, chest pain, palpitations, nausea, vomiting, diarrhea, constipation, abdominal pain, or any urinary issues. [facility] Past Medical History Medical History Screening for thyroid disorder History of primary non-small cell carcinoma of left lung BMI 24.0-24.9, adult Carotid stenosis, right Atherosclerosis of arteries BPH associated with nocturia Screening for colon cancer COVID-19 BMI 23.0-23.9, adult Body aches Sore throat BMI 22.0-22.9, adult Surgical History Surgical History History of lung surgery Family History Family History Sibling Hypertension Mother Acute myocardial infarction Father , car crash Sibling Hypertension Social History Social History Smoking packs per day: 2 Smoking cigarettes per day: 40.0 Years smoked: 35 Smoking pack-years: 70.00 Smoking status: Former smoker Tobacco type: cigarettes Second hand tobacco smoke exposure: No Alcohol intake: former Drinks per week: 7 Substance use: never Substance use type: does not use Do You Feel Safe in your Home?: Yes Lack of Transportation: No Lack of Food: Never True Current Housing: I Have Housing Concerned About Future Housing: No Difficulty Paying Gas/Electric Bills: No Difficulty Paying for Meds: No Currently Unemployed: No Education: Trade/Vocational Certificate Difficulty w/ Childcare or Family Care: No Living arrangements: with family Additional living arrangements comments: Occupation/Education: retired 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 There is no relevant family history pertinent to the patient complaint. Exam Narrative: General: Well-developed, well nourished, in no apparent distress Head: Normocephalic, atraumatic Eyes: Pupils equally round and reactive to light bilaterally, EOM intact, sclera and conjunctive clear, no discharge, lids normal Ears: TMs intact and congested, ear canals clear, no drainage, grossly hearing normal. Nose: Nares patent, clear nasal discharge, moderate inflammation, no sinus tenderness. Mouth: Oral pharynx red with with mild swelling to the uvula without lesions or masses, good dentition, MMM. Neck: Supple, trachea midline, no enlargement of anterior or posterior cervical nodes, no thyroid masses or goiter palpable. Cardio: Regular rate and rhythm, s1 and s2 normal, no murmur appreciated. Resp: Clear to auscultation bilaterally, no rhonchi, rales, wheezing or rubs Course Course Emergency Course: Portions of this record may have been created with voice recognition software. Level of Care: Express Care Visit Vital Signs Vital signs: Vital Signs Temperature 36.9 C 02/08/25 11:00 Pulse Rate 74 02/08/25 11:00 Respiratory Rate 18 02/08/25 11:00 Blood Pressure 115/62 02/08/25 11:00 Pulse Oximetry 97 02/08/25 11:00 Oxygen Delivery Room Air 02/08/25 11:00 Temperature 36.9 C 02/08/25 11:00 Pulse Rate 74 02/08/25 11:00 Respiratory Rate 18 02/08/25 11:00 Blood Pressure 115/62 02/08/25 11:00 Pulse Oximetry 97 02/08/25 11:00 Oxygen Delivery Room Air 02/08/25 11:00 Vital signs reviewed MDM - URI/Sore Throat MDM Narrative Medical decision making narrative: At the time of visit patient is resting comfortably on the exam table. Patient appears to be nontoxic. Labs: Strep, COVID, and influenza test were negative. We will send strep for culture. Plan: I suspect patient has URI/pharyngitis/viral syndrome. Will send in prescription for prednisone for the congestion and a mild swelling of the uvula. Supportive measures were discussed with the patient and they voiced understanding discharge instructions and agrees to treatment plan. Return precautions reviewed Differential Diagnosis Differential diagnosis: Likely upper respiratory infection, otitis media, sinusitis, viral infection, bronchitis, influenza, pharyngitis and other (COVID) Discharge Plan Discharge Clinical Impression: Acute viral syndrome URI (upper respiratory infection) Qualifiers: URI type: unspecified URI Qualified Code(s): J06.9 - Acute upper respiratory infection, unspecified Pharyngitis Qualifiers: Pharyngitis/tonsillitis etiology: unspecified etiology Qualified Code(s): J02.9 - Acute pharyngitis, unspecified Patient Disposition: Home Condition: Stable Instructions: Antibiotic Form, Pharyngitis (ED), Upper Respiratory Infection (ED), Viral Syndrome (ED) Additional Instructions: No sign of bacterial infection in the clinic today. COVID, influenza, and strep test were negative in the clinic today. We will send strep for culture. Take prescription medications only as prescribed-prednisone May take Coricidin HBP for cold/flu symptoms Increase fluids and stay well hydrated Tylenol/motrin for pain/fever Flonase and OTC antihistamines as directed Vicks vapor rub to open sinuses Sinus rinses for congestion Cepacol spray, cough drops, throat lozenges, warm tea with honey/lemon, gargle salt water to soothe throat BRAT diet for diarrhea Clear liquids x 24 hours then advance as tolerated for nausea/vomiting Go to the ED if you develop a worsening in your condition- high fever not controlled by Tylenol or Motrin, dehydration, weakness, lethargy, shortness of breath, or chest pain. Follow up with your PCP in 3-5 days if symptoms persist. Patient Language: Mongolian Prescriptions: New prednisone 20 mg tablet 40 mg PO DAILY 5 Days Qty: 10 0RF No Action tamsulosin 0.4 mg capsule 0.4 mg PO DAILY albuterol sulfate [Ventolin HFA] 90 mcg/actuation HFA aerosol inhaler 1 inh inhalation Q4H Qty: 6.7 0RF amlodipine 10 mg tablet PO DAILY aspirin 81 mg Tablet 81 mg PO DAILY finasteride 5 mg tablet 5 mg PO DAILY atorvastatin [Lipitor] 80 mg tablet 80 mg PO DAILY Qty: 90 1RF lisinopril 20 mg tablet 20 mg PO DAILY Qty: 90 3RF omeprazole 40 mg capsule,delayed release(DR/EC) 40 mg PO DAILY Qty: 30 5RF metoprolol succinate 100 mg tablet extended release 24 hr 100 mg PO DAILY Qty: 90 0RF alprazolam 0.5 mg tablet 0.5 mg PO TID PRN (Reason: anxiety) Qty: 60 0RF Follow-up/Referrals: Sumanth Quigley MD [Primary Care Provider] - Time of Disposition: 11:19 Quality NIHSS Nursing Documentation ED NIHSS nursing documentation: reviewed/agree
[2025-02-08 11:00] VITALS: BP 115/62; PULSE 74; RESP 18; TEMP 36.9; O2SAT 97
[2025-02-08 11:11] LABS: EDSTREPNEGPOS1 Negative (Negative)
[2025-02-08 11:24] LABS: EDCOVIDSCREEN Negative (Negative); EDINFLUASCREEN Negative (Negative); EDINFLUBSCREEN Negative (Negative)
--- OUTSIDE RECORDS SUMMARY | 2025-02-08 11:24 | XMS_ITS | Referral Summary ---
Author Organization [facility] Address [address] [place] [address] Phone Care Team Providers Care Otolaryngology Physician Name Role Phone Sumanth Quigley MD Primary Care Provider + [phone] Guido Ireland MD Unavailable [phone] Allergies Active Allergy Reactions Criticality Noted Date [...] outside facility. 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 Test Performed by: [place] [address] Scraper Tender: Kody Allen M.D. Ph.D.; CLIA# [id number] Blood 12/09/2022 2:33 PM CDT 12/09/2022 4:21 PM CDT Davon Murray MD LAB BLOOD ORDERABLES Final Resu lt [facility] [address] [facility]. [place] [address] from Last 3 Months or Most Recently Relevant to Health Maintenance Insurance MEDICARE [facility] [place] MEDICARE [place] [facility] [place] MEDICARE [facility] Care Teams Otolaryngology Physician Relationship Specialty Start Date End Date Sumanth Quilgey MD PCP - General 10/29/15 Guido Ireland MD [address] [facility] [address] [address] [place] [address] Surgeon Vascular Surgery 05/11/23
--- OUTSIDE RECORDS SUMMARY | 2025-02-08 11:24 | XMS_ITS | Encounter Summary ---
Author Organization [facility] Address [address] [place] [address] Phone Care Team Providers Care Cosmetic Dentist Name Role Phone Sumanth Quigley MD Primary Care Provider + [phone] Guido Ireland MD Unavailable [phone] Encounter Details Date Type Department Care Team (Late st Contact Info) Description 08/23/2018 Telephone 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
--- OUTSIDE RECORDS SUMMARY | 2025-02-08 11:24 | XMS_ITS | Clinical Summary ---
Author Organization [facility] Address [address] [place] [address] Phone Care Team Providers Care Production Crew Supervisor Name Role Phone Sumanth Quigley MD Primary Care Provider + [phone] Guido Ireland MD Unavailable [phone] Allergies Active Allergy Reactions Criticality Noted Date [...] outside facility. Patient had routine surveillance at [facility] and wanted to establish care with vascular [...] 09/02/2017 Surgical History Surgery Date Site/Laterality Comments FL TEAEC W/PATCH GRF CAROTID VERTB SUBCLAV NECK INC Carotid Thromboendarterectomy - (Added by TW Conv) Medical History Medical History Date Comments Atherosclerosis Atherosclerosis - (Added by TW Conv) Personal history of other di seases of the circulatory system History of hypertension - (A dded by [place] Conv) Lung cancer (HCC) Hypertension Enlarged prostate Family History Medical History Relation Name Comments Car Accident Father Heart disease Mother Family history of cardiac disorder - (Added by [place] Conv) Breast cancer Mother's Sister 1 Family hi story of malignant neoplasm of female breast - (Added by [place] Conv) Colon cancer Mother's Sister 2 Family his tory of malignant neoplasm of colon - (Added by [place] Conv) Relation Name Status Comments Father (Age [...] on file Legal Sex Male 12:31 PM SURGICAL LEAD Gender Identity Not on file Sexual Orientation Not on file Obstetrics History Last Filed Vital Signs Vital Sign Reading Time Taken Comments Blood Pressure 198/90 05/25/2024 9:33 AM CDT Pulse 71 05/25/2024 9:33 AM CDT Temperature 36.8 C (98.2 F) 09/01/2018 1:49 PM SURGICAL LEAD Respiratory Rate 12 09/01/2018 1:49 PM SURGICAL LEAD Oxygen Saturation 93% 01/18/2024 9:13 AM CDT [...] absence of malignant disease. Test Performed by: [facility] [address] [place] [address] Senior Electrical Engineer: Kody Allen M.D. Ph.D.; CLIA# [id number] Blood 12/09/2022 2:33 PM CDT 12/09/2022 4:21 PM CDT Davon Murray MD LAB BLOOD ORDERABLES Final Resu lt Performing Organization Address City/State/ZIP Co ny Phone Number [facility] [address] [facility] [address] from Last 3 Months or Most Recently Relevant to Health Maintenance Insurance MEDICARE [facility] MEDICARE [facility] MEDICARE [facility] [place] [address] Care Teams Production Crew Supervisor Relationship Specialty Start Date End Date Sumanth Quigley MD PCP - General 10/29/15 Guido Ireland MD [address] [place] [address] Surgeon Vascular Surgery 05/11/23
== END 2025-02-08 11:21 | disposition home or self-care (01) ==
PROVIDERS: Emergency Provider Nurse Practitioner Family; PCP Family Medicine
DX: B34.9 Viral infection, unspecified (principal); J06.9 Acute upper respiratory infection, unspecified; J02.9 Acute pharyngitis, unspecified; Z20.822 Contact with and (suspected) exposure to COVID-19; Z87.891 Personal history of nicotine dependence; I65.21 Occlusion and stenosis of right carotid artery; N40.1 Benign prostatic hyperplasia with lower urinary tract symptoms; Z86.16 Personal history of COVID-19; Z79.82 Long term (current) use of aspirin
CPT/HCPCS: 87081; 87426; 87804; 87880; 99213; G0463